=== PATIENT | female | born 1955 | race Caucasian/White ===

== ENCOUNTER 2022-11-27 16:50 | Emergency (ER) | payer MEDICARE, SELFPAY ==
[2022-11-27 17:05] VITALS: BP 172/85; PULSE 71; RESP 20; TEMP 36.8; O2SAT 99; BMI 26.9
--- NOTE | 2022-11-27 17:15 | EXP.UTC ---
Discharge Plan Disposition Patient Disposition: Home, Self-Care Condition: Good Prescriptions Prescriptions: New prednisone [prednisone] 20 mg tablet 20 mg PO BID 5 Days Qty: 10 0RF No Action carvedilol 6.25 mg tablet 6.25 mg PO DAILY sumatriptan succinate [Imitrex] 50 mg Tablet 50 mg PO DAILYP PRN (Reason: Migraine Headache) Rx Instructions: do not exceed 4 doses per 24 hrs amlodipine 10 mg tablet 5 mg PO DAILY valsartan 160 mg tablet 160 mg PO DAILY Patient Comments: TAKE ONE TABLET BY MOUTH DAILY Referrals Follow up/Referrals: Provider,Referral, MD [Primary Care Provider] - See instructions Activity Restrictions/Add. Instructions Additional Instructions/Restrictions: Start oral Prednisone tomorrow Continue taking over the counter benadryl as directed on package Follow up with your [facility] if no improvement or any worsening of symptoms Return if needed Straight to ER if any life threatening symptoms Clinical Impressions Clinical Impression: Urticaria Instructions Patient Instructions: [place], DI for Hives, Prednisone Discharge ED Provider: Mary Conklin [facility] General Stated complaint: poss allergic reaction Mode of Arrival: Ambulatory Source of Information: Patient Limitations: No Limitations Time Seen by Provider: 11/27/22 17:18 Description of Symptoms (Recalled from Triage Doc. by RN): PATIENT C/O ITCHY RASH ALL OVER THAT STARTED YESTERDAY HEENT Symptoms (Recalled from RN notes): No Resp Symptoms (Recalled from RN notes): No Skin Symptoms (Recalled from RN notes): Yes MS Symptoms (Recalled from RN notes): No Functional Status (Recalled from RN notes): WNL History of Present Illness Provider Complaint: Patient states that she started breaking out in rash on her face, neck, arms abdomen and legs yesterday and she started taking benadryl States that she is not sure what she may have got into that she is having a reaction too but noticed today it was looking like welps and still itching States that the rash on her face has got better but not on the rest of her body so she came in Related Data Home Medications Medication Instructions Recorded Confirmed amlodipine 10 mg tablet 5 mg PO DAILY Hypertension 11/27/22 11/27/22 carvedilol 6.25 mg tablet 6.25 mg PO DAILY Hypertension 11/27/22 11/27/22 sumatriptan succinate 50 mg tablet 50 mg PO DAILYP PRN Migraine 11/27/22 11/27/22 (Imitrex) Headache valsartan 160 mg tablet 160 mg PO DAILY Hypertension 11/27/22 11/27/22 Previous Rx's Medication Instructions Recorded prednisone 20 mg tablet 20 mg PO BID 5 days #10 tabs 11/27/22 Allergies Allergy/AdvReac Type Severity Reaction Status Date / Time latex Allergy Verified 11/27/22 17:11 Sulfa (Sulfonamide Allergy Verified 11/27/22 17:11 Antibiotics) Worker's Comp Is this a Worker's Comp case?: No PFSH [facility] Disclaimer: The information contained in this section may have been updated after the patient was seen, as this information can be updated by other users. Medical History (Updated 11/27/22 @ 17:24 by Mary Conklin APRN) Hypertension Migraine Surgical History (Updated 11/27/22 @ 17:14 by Barb Zavaleta RN) History of tonsillectomy Social History Smoking Status: Never smoker alcohol intake: never current occupational status: retired Travel in the last 8 weeks: None ROS Obtained: Yes All systems reviewed & no additional complaints except as documented and Yes Systems reviewed as appropriate & no additional complaints except as documented ENT Ears, Nose, Mouth, and Throat: Reports system reviewed and no additional complaints, except as documented and Reports as per HPI Cardiovascular Cardiovascular: Reports system reviewed and no additional complaints, except as documented and Reports as per HPI Respiratory Respiratory: Reports system reviewed and no additional complaints, except as documented and Report
[2022-11-27 17:30] VITALS: BP 172/85; PULSE 71; RESP 20; TEMP 36.8; O2SAT 99
== END 2022-11-27 17:53 | disposition home or self-care (01) ==
PROVIDERS: Emergency Provider Nurse Practitioner
DX: L50.9 Urticaria, unspecified (principal); I10 Essential (primary) hypertension; G43.909 Migraine, unspecified, not intractable, without status migrainosus
CPT/HCPCS: 96372; 99204; 99212; G0463